=== PATIENT | female | born 2000 | race Caucasian/White ===

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

== ENCOUNTER 2019-07-01 02:59 | Emergency (ER) | payer BC ==
[~2019-07-01] VITALS: Ht 170.2 cm; Wt 100.0 kg
[2019-07-01 03:06] VITALS: BP 125/70; TEMP 98.1
[2019-07-01 03:30] LABS: BASO % 0.3 % (0.0-2.0); EOS # 0.2 (0.0-0.7); EOS % 1.9 % (0-4.0); GRAN # 4.9 (1.4-6.5); GRAN % 54.4 % (42.2-75.2); HEMATOCRIT 39.6 % (35.0-45.0); HEMOGLOBIN 12.5 g/dl (12.0-15.0); LYMPH # 2.9 (1.2-3.4); LYMPH % 32.4 % (20.0-51.0); MEAN CELL VOLUME 87 fl (80.0-95.0); MEAN CORPUSCULAR HEMOGLOBIN 28 pg (26.0-32.0); MEAN CORPUSCULAR HGB CONC 32 g/dl (33.0-37.0); MEAN PLATELET VOLUME 9.5 fl (7.4-10.4); MONO % 10.8 % (1.7-9.3); PLATELET COUNT 220 K/mm3 (130-400); RED BLOOD COUNT 4.54 M/mm3 (4.10-5.30); REDCELL DISTRIBUTION WIDTH-CV 12.7 % (11.5-14.5)
[2019-07-01 03:40] LABS: ALBUMIN 4.2 gm/dL (3.5-5.0); BILIRUBIN,TOTAL 0.6 mg/dL (0.0-1.0); CREATININE, serum 0.69 (0.52-1.25); POTASSIUM 3.3 mmol/L (3.4-5.0); TOTAL PROTEIN 7.4 gm/dL (6.4-8.2)
[2019-07-01 04:30] LABS: COLLECTION METHOD CLEAN CATCH
[2019-07-01 04:36] LABS: MUCOUS Present /lpf; PH 5 (5-8); SQUAMOUS EPITHELIAL 0-2 /hpf; URINE APPEARANCE Clear; URINE BACTERIA Rare /hpf; URINE BILIRUBIN Negative (NEGATIVE); URINE BLOOD 2+ (NEGATIVE); URINE COLOR Yellow; URINE GLUCOSE Negative (NEGATIVE); URINE KETONE Trace (NEGATIVE); URINE LEUKOCYTE ESTERASE Negative (NEGATIVE); URINE NITRATE Negative (NEGATIVE); URINE PROTEIN(semi-quant) Negative (NEGATIVE); URINE RBC 20-50 /hpf; URINE UROBILINOGEN Negative (NEGATIVE)
[2019-07-01 06:09] VITALS: PULSE 66
[2019-07-02] MEDS ORDERED: CEFTIN 250250 MG/TAB PO (21:46)
== END 2019-07-01 06:09 | disposition home or self-care (01) ==
LOC: COL.ER 02:59
PROVIDERS: Emergency Medicine
DX: N20.1 Calculus of ureter (principal); K50.90 Crohn's disease, unspecified, without complications; Z87.442 Personal history of urinary calculi
CPT/HCPCS: J1885; J2765; J3010; J7030

== ENCOUNTER 2019-07-02 19:17 | Emergency (ER) | payer BC ==
[~2019-07-02] VITALS: Ht 170.2 cm; Wt 100.0 kg
[2019-07-02 20:20] LABS: BASO % 0.2 % (0.0-2.0); EOS % 0.2 % (0-4.0); GRAN # 10.2 (1.4-6.5); GRAN % 83.5 % (42.2-75.2); HEMATOCRIT 38.7 % (35.0-45.0); HEMOGLOBIN 12.2 g/dl (12.0-15.0); LYMPH % 8.1 % (20.0-51.0); MEAN CELL VOLUME 87 fl (80.0-95.0); MEAN CORPUSCULAR HEMOGLOBIN 27 pg (26.0-32.0); MEAN CORPUSCULAR HGB CONC 32 g/dl (33.0-37.0); MONO % 7.7 % (1.7-9.3); PLATELET COUNT 216 K/mm3 (130-400); RED BLOOD COUNT 4.47 M/mm3 (4.10-5.30); REDCELL DISTRIBUTION WIDTH-CV 12.7 % (11.5-14.5)
[2019-07-02 20:32] LABS: ALBUMIN 4.1 gm/dL (3.5-5.0); BILIRUBIN,TOTAL 0.5 mg/dL (0.0-1.0); CALCIUM 8.9 mg/dL (8.4-10.2); CREATININE, serum 0.95 (0.52-1.25); TOTAL PROTEIN 7.4 gm/dL (6.4-8.2)
[2019-07-02 20:47] LABS: COLLECTION METHOD CLEAN CATCH
[2019-07-02 21:03] LABS: MUCOUS Present /lpf; PH 5 (5-8); SQUAMOUS EPITHELIAL 0-2 /hpf; URINE APPEARANCE Clear; URINE BACTERIA Rare /hpf; URINE BILIRUBIN Negative (NEGATIVE); URINE BLOOD 2+ (NEGATIVE); URINE COLOR Yellow; URINE GLUCOSE Negative (NEGATIVE); URINE KETONE 2+ (NEGATIVE); URINE LEUKOCYTE ESTERASE Negative (NEGATIVE); URINE NITRATE Negative (NEGATIVE); URINE PROTEIN(semi-quant) Negative (NEGATIVE); URINE RBC 20-50 /hpf; URINE UROBILINOGEN Negative (NEGATIVE)
[2019-07-02] MEDS ORDERED: CEFTIN 250250 MG/TAB PO (21:46)
[2019-07-02 22:09] VITALS: BP 121/71; PULSE 73; TEMP 97.4
== END 2019-07-02 22:20 | disposition home or self-care (01) ==
LOC: COL.ER 19:17
PROVIDERS: Nurse Practitioner
DX: N20.0 Calculus of kidney (principal); K50.90 Crohn's disease, unspecified, without complications; Z90.49 Acquired absence of other specified parts of digestive tract
CPT/HCPCS: J1170; J1885; J2405; J7030

== ENCOUNTER → 2020-03-24 | Outpatient (CLI) | payer BC ==
[~2020-03-24] MED LIST changes: +CEFTIN 250250 MG/TAB PO
== END ==
LOC: ZCOL.LAB 14:38
DX: U07.1 COVID-19 (principal)

== ENCOUNTER 2020-05-01 20:35 | Emergency (ER) | payer BC ==
[~2020-05-01] VITALS: Ht 170.2 cm; Wt 86.4 kg
[2020-05-01 20:59] VITALS: BP 129/81
[2020-05-01 23:00] VITALS: PULSE 78; TEMP 98
== END 2020-05-01 23:06 | disposition home or self-care (01) ==
LOC: COL.ER 20:35
DX: S63.286A Dislocation of proximal interphalangeal joint of right little finger, initial encounter (principal); S80.211A Abrasion, right knee, initial encounter; S60.512A Abrasion of left hand, initial encounter; R40.2410 Glasgow coma scale score 13-15, unspecified time; V00.141A Fall from scooter (nonmotorized), initial encounter; Y92.89 Other specified places as the place of occurrence of the external cause

== ENCOUNTER → 2020-08-20 | Outpatient (CLI) | payer BC ==
[2020-08-20 14:34] LABS: HEMATOCRIT 41.9 % (35.0-45.0); HEMOGLOBIN 13.4 g/dl (12.0-15.0); MEAN CELL VOLUME 89 fl (80.0-95.0); MEAN CORPUSCULAR HEMOGLOBIN 28 pg (26.0-32.0); MEAN CORPUSCULAR HGB CONC 32 g/dl (33.0-37.0); MEAN PLATELET VOLUME 9.7 fl (7.4-10.4); PLATELET COUNT 255 K/mm3 (130-400); RED BLOOD COUNT 4.73 M/mm3 (4.10-5.30); REDCELL DISTRIBUTION WIDTH-CV 12.7 % (11.5-14.5)
[2020-08-20 14:52] LABS: ALBUMIN 4.4 gm/dL (3.5-5.0); ANION GAP 7 mmol/L (7-16); BLOOD UREA NITROGEN 10 mg/dL (7-17); CALCIUM 9.1 mg/dL (8.4-10.2); CARBON DIOXIDE 29 mmol/L (22-30); CHLORIDE 104 mmol/L (98-107); CREATININE, serum 0.58 (0.52-1.25); GLUCOSE 94 mg/dL (74-106); POTASSIUM 3.7 mmol/L (3.4-5.0); SODIUM 140 mmol/L (137-145); TOTAL PROTEIN 7.6 gm/dL (6.4-8.2)
[2020-08-20 14:53] LABS: ALANINE AMINOTRANSFERASE 17 U/L (4-34); ALKALINE PHOSPHATASE 71 U/L (50-136); AST,SGOT 26 U/L (15-37); BILIRUBIN,TOTAL 0.4 mg/dL (0.0-1.0); C-REACTIVE PROTEIN < 0.5 mg/dL (0.0-0.9)
[2020-08-20 15:02] LABS: ERYTHROCYTE SEDIMENTATION RATE 7 mm/hr (0-20)
[2020-08-20 15:09] LABS: HIV 1/2 Antibodies Non-Reactive; HIV-1p24 Antigen Non-Reactive
[2020-08-20 23:11] LABS: HEPATITIS A ANTIBODY-IGM Negative (Negative); HEPATITIS B SURFACE ANTIBODY <2.0 (())
[2020-08-21 13:22] LABS: HEPATITIS AB (HAV) IGG INDEX 1.03 Index (<=1.00)
[2020-08-21 19:51] LABS: TB GOLD INTERPRETATION Negative (Negative)
== END ==
LOC: COL.LAB 13:03
DX: K58.8 Other irritable bowel syndrome (principal)